=== PATIENT | male | born 1985 | race Caucasian/White ===

== ENCOUNTER 2017-07-18 19:39 | Emergency (ER) | payer BC ==
[~2017-07-18] VITALS: Ht 180.3 cm; Wt 65.8 kg
[~2017-07-18 19:39] MED LIST: KEFLEX500 M1 PO; MOTRIN600 MG PO; NO MEDICATIONS; ROBAXIN PO
== END 2017-07-19 00:48 | disposition home or self-care (01) ==
LOC: SED 19:39
DX: L02.01 Cutaneous abscess of face (principal); L02.31 Cutaneous abscess of buttock; F17.210 Nicotine dependence, cigarettes, uncomplicated
CPT/HCPCS: 10061; 99283

== ENCOUNTER 2017-07-21 20:30 | Emergency (ER) | payer BC ==
[~2017-07-21] VITALS: Ht 180.3 cm; Wt 65.8 kg
== END 2017-07-21 22:11 | disposition home or self-care (01) ==
LOC: SED 20:30
DX: L02.01 Cutaneous abscess of face (principal); L02.31 Cutaneous abscess of buttock; F17.210 Nicotine dependence, cigarettes, uncomplicated
CPT/HCPCS: 99283